=== PATIENT | female | born 1990 | race Caucasian/White ===

== ENCOUNTER 2017-09-24 11:29 | Inpatient (IN) | payer OTHER ==
[2017-09-24 16:56] VITALS: BP 127/79
[2017-09-24] MEDS ORDERED: PREN1TAB80 PO (16:56)
[2017-09-25] MEDS ORDERED: RINGERS SOLUTION,LACTATED 1,000 ML IV PRN (05:48)
[2017-09-25] MEDS ORDERED: OXYTOCIN 30 UNITS/LACT RINGERS 500 ML IV ONE (05:48)
[2017-09-25] MEDS ORDERED: OXYTOCIN 30 UNITS/LACT RINGERS 500 ML IV PRN (05:52)
[2017-09-25] MEDS ORDERED: FentaNYL CITRATE-PF 100 MCG/2 ML VIAL IVP PRN ×3 (06:00→21:15)
[2017-09-25] MEDS ORDERED: METOCLOPRAMIDE HCL 5 MG/ML 2 ML VIAL IVP PRN (06:00)
[2017-09-25] MEDS ORDERED: CITRIC ACID/SODIUM CITRATE 30 ML SOLUTION UDCUP PO PRN (06:00)
[2017-09-25 06:48] LABS: BASOPHILS % (AUTO) 0.4 % (0.0-2.0); EOSINOPHILS % (AUTO) 0.2 % (1.0-6.0); HEMATOCRIT 39.1 % (36-46); HEMOGLOBIN 13.6 g/dL (12.0-16.0); LYMPHOCYTES % (AUTO) 21.3 % (22.0-44.0); MEAN CORPUSCULAR HEMOGLOBIN 28.5 pg (26.0-34.0); MEAN CORPUSCULAR HGB CONC 34.8 G/dL (31.0-37.0); MEAN CORPUSCULAR VOLUME 82 fL (80-100); MONOCYTES # (AUTO) 0.5 K/uL (0.1-1.0); MONOCYTES % (AUTO) 5.5 % (2.0-9.0); NEUTROPHILS # (AUTO) 6.7 K/uL (1.8-7.7); NEUTROPHILS % (AUTO) 72.6 % (40.0-70.0); PLATELET COUNT (AUTO)-OB 243 K/uL (150-450); RED BLOOD CELL COUNT(AUTO) 4.77 MIL/uL (4.00-5.20); RED CELL DISTRIBUTION WIDTH 13.7 % (11.5-14.5)
[2017-09-25] MEDS: RINGERS SOLUTION,LACTATED 1,000 ML IV SCH ×4 (07:50→21:00)
[2017-09-25] MEDS ORDERED: OXYGEN THERAPY IH SCH ×3 (08:00→21:15)
[2017-09-25] MEDS ORDERED: ROPIVACAINE HCL 0.2% 100 ML ED ONE ×2 (09:29→15:21)
[2017-09-25] MEDS ORDERED: LIDOCAINE HCL 2%/EPI 1:200,000/PF 20 ML VIAL ONE (18:55)
[2017-09-25] MEDS ORDERED: GENTAMICIN 80 MG/NACL ISO-OSM 100 ML IV ONE (19:29)
[2017-09-25] MEDS ORDERED: GUM MASTIC/STORAX/MSAL/ALCOHOL LIQUID 0.67 ML VIAL TP ONE (19:47)
[2017-09-25] MEDS ORDERED: METHYLERGONOVINE MALEATE 0.2 MG/ML VIAL ONE (19:47)
[2017-09-25] MEDS ORDERED: LANOLIN 7 GM OINTMENT TP PRN (20:15)
[2017-09-25] MEDS ORDERED: ACETAMINOPHEN/CODEINE 300-30 MG TABLET PO PRN ×2 (20:15)
[2017-09-25] MEDS ORDERED: RINGERS SOLUTION,LACTATED 1,000 ML IV ONE (20:41)
[2017-09-25] MEDS ORDERED: NALOXONE HCL 0.4 MG/ML VIAL IVP PRN (21:15)
[2017-09-25] MEDS ORDERED: MEPERIDINE-PF 25 MG/ML SYRINGE IVP PRN (21:15)
[2017-09-25] MEDS ORDERED: MORPHINE SULFATE 10 MG/ML SYRINGE IVP PRN (21:15)
[2017-09-25] MEDS ORDERED: NALBUPHINE HCL 10 MG/ML VIAL IVP PRN ×3 (21:15)
[2017-09-25] MEDS ORDERED: ACETAMINOPHEN 1000 MG/ISO-OSM 100 ML IV ONE (21:15)
[2017-09-25] MEDS ORDERED: ONDANSETRON HCL 4 MG/2 ML VIAL IVP PRN ×2 (21:15)
[2017-09-25] MEDS ORDERED: MORPHINE SULFATE 2 MG/ML SYRINGE IVP PRN (21:15)
[2017-09-25] MEDS ORDERED: DiphenhydrAMINE HCL 50 MG/ML VIAL IVP PRN ×2 (21:15)
[2017-09-25] MEDS ORDERED: ACETAMINOPHEN 1000 MG/ISO-OSM 100 ML IV SCH (21:30)
[2017-09-26] MEDS: DEXTROSE 5%-0.45% SODIUM CHL 1,000 ML IV SCH ×2 (01:02→05:20)
[2017-09-26] MEDS ORDERED: OXYTOCIN 10 UNITS/ML VIAL IM ONE (05:16)
[2017-09-26] MEDS: IBUPROFEN 800 MG TABLET PO SCH ×2 (14:16→18:42)
[2017-09-26] MEDS: MAGNESIUM HYDROXIDE SUSPENSION 30 ML UDCUP PO SCH (20:22)
[2017-09-27] MEDS: IBUPROFEN 800 MG TABLET PO SCH ×3 (00:28→13:06)
[2017-09-27] MEDS ORDERED: MORPHINE SULFATE/PF 0.5 MG/ML 10 ML AMP IVP ONE (05:31)
[2017-09-27] MEDS: MAGNESIUM HYDROXIDE SUSPENSION 30 ML UDCUP PO SCH (09:49)
[2017-09-27] MEDS ORDERED: IBUP-2071 PO (10:34)
== END 2017-09-27 18:24 | disposition home or self-care (01) | DRG 766 ==
LOC: 4S 16:34 → OBSVTOIN 16:34 → 4S 09-25 21:55
PROVIDERS: ADMIT Obstetrics & Gynecology; ATTEND Obstetrics & Gynecology
PROC: 10D00Z1 Extraction of Products of Conception, Low, Open Approach (ICD-10-PCS; principal; 2017-09-25)
DX: O77.0 Labor and delivery complicated by meconium in amniotic fluid (principal); O32.4XX0 Maternal care for high head at term, not applicable or unspecified; O33.9 Maternal care for disproportion, unspecified; Z37.0 Single live birth; Z3A.40 40 weeks gestation of pregnancy
CPT/HCPCS: J0131; J0690; J1580; J2210; J2274; J2590; J2765; J2795; J7120